=== PATIENT | female | born 1995 | race Caucasian/White ===

== ENCOUNTER 2024-03-12 22:44 | Emergency (ER) | payer SELFPAY ==
[~2024-03-12] VITALS: Ht 152.4 cm; Wt 56.7 kg
[2024-03-12 23:07] VITALS: PULSE 116; RESP 18; TEMP 97.6; O2SAT 100
== END 2024-03-12 23:20 | disposition home or self-care (01) ==
LOC: FSED 22:48
DX: L55.0 Sunburn of first degree (principal); E11.9 Type 2 diabetes mellitus without complications; E03.9 Hypothyroidism, unspecified
CPT/HCPCS: 99282

== ENCOUNTER 2024-07-24 17:29 | Observation (INO) | payer SELFPAY ==
[~2024-07-24] VITALS: Ht 152.4 cm; Wt 58.1 kg
[2024-07-24 17:32] VITALS: PULSE 84; RESP 18; TEMP 98
[2024-07-24] MEDS: LACTATED RINGER'S 1,000 ML IV ONE ×2 (18:15→19:19)
[2024-07-24] MEDS ORDERED: ONDANSETRON HCL INJ 2MG/ML 2ML 2 MG/ML VIAL IV PRN (18:45)
[2024-07-24] MEDS: INSULIN REGULAR, HUMAN 100 UNIT/1 ML SQ ONE (19:22)
[2024-07-24 20:24] VITALS: BP 114/71; PULSE 91; RESP 19; TEMP 98.2; O2SAT 100
[2024-07-24] MEDS ORDERED: DEXTROSE 50% SYRINGE 50 ML IV PRN (20:30)
[2024-07-24 21:00] VITALS: BP 124/78; PULSE 84; RESP 18; TEMP 98.3; O2SAT 100
[2024-07-24] MEDS ORDERED: INSULIN REGULAR, HUMAN 100 UNIT/1 ML SQ SCH (21:00)
[2024-07-24 21:30] VITALS: BP 124/78; PULSE 84; RESP 18; TEMP 98.3; O2SAT 100
[2024-07-24] MEDS: SODIUM CHLORIDE 0.9% 1000ML 1,000 ML IV SCH (22:08)
[2024-07-24] MEDS: INSULIN REGULAR, HUMAN 100 UNIT/1 ML SQ SCH (22:30)
[2024-07-24 23:06] LABS: ANION GAP 12.6 mmol/L (8-16); CALCIUM 8.9 mg/dL (8.4-10.2); CREATININE, SERUM 0.69 mg/dL (0.57-1.11); POTASSIUM 3.6 mmol/L (3.5-5.1)
[2024-07-24 23:20] LABS: MAGNESIUM 1.6 MG/DL (1.3-2.1); PHOSPHORUS 2.2 MG/DL (2.3-4.7)
[2024-07-25] VITALS (7 sets, daily range): BP systolic 108–126; BP diastolic 55–76; PULSE 70–81; RESP 16–20; TEMP 97.7–98.3; O2SAT 99–100
[2024-07-25] MEDS ORDERED: LANTUS 3ML100 UNITS/ SC (00:36)
[2024-07-25] MEDS ORDERED: LEVOTHYROXINE50 MCG PO (00:36)
[2024-07-25] MEDS ORDERED: HUMALOG100 UNIT/1 SC ×2 (00:36)
[2024-07-25] MEDS: INSULIN LISPRO 100 UNIT/1 ML 3ML VIAL SQ SCH ×3 (16:30→21:00)
[2024-07-25] MEDS ORDERED: DEXTROSE 50% SYRINGE 50 ML IV PRN (18:00)
[2024-07-25] MEDS: INSULIN GLARGINE 100 UNITS/ML VIAL SQ SCH (20:43)
[2024-07-25] MEDS ORDERED: INSULIN GLARGINE SC SCH (21:00)
[2024-07-26 04:00] VITALS: BP 119/66; PULSE 66; RESP 17; TEMP 97.4; O2SAT 100
[2024-07-26] MEDS: LEVOTHYROXINE SODIUM 50 MCG TAB PO SCH (06:09)
[2024-07-26] MEDS: LEVOTHYROXINE SODIUM 50 MCG TAB ONE (06:09)
[2024-07-26 08:00] VITALS: BP_SYST 122; BP_SYST 160; BP_DIAS 66; BP_DIAS 85; PULSE 64; PULSE 72; RESP 18; RESP 19; TEMP 97.8; TEMP 98.7; O2SAT 100
[2024-07-26 08:30] LABS: BASOPHILS # (AUTO) 0.1 (0.0-0.1); BASOPHILS % 0.8 % (0.0-1.0); EOSINOPHILS # (AUTO) 0.2 (0.0-0.4); EOSINOPHILS % 2.7 % (0.0-6.0); HEMATOCRIT 42.1 % (34.2-44.1); LYMPHOCYTES # (AUTO) 2.9 (1.0-3.2); LYMPHOCYTES % 37.9 % (18.0-39.1); MEAN CORPUSCULAR HEMOGLOBIN 29.5 pg (28-32); MEAN CORPUSCULAR HGB CONC 33.3 g/dL (31-35); MEAN CORPUSCULAR VOLUME 88.8 fL (81-99); MONOCYTES # (AUTO) 0.5 (0.2-0.8); MONOCYTES % 6.7 % (4.4-11.3); NEUTROPHILS % 51.6 % (38.7-80.0); PLATELET COUNT 273 x10e3/uL (140-360); RED BLOOD COUNT 4.74 x10e6/uL (3.6-5.1); RED CELL DISTRIBUTION WIDTH 12.3 % (11.7-14.4); WHITE BLOOD COUNT 7.65 x10e3/uL (4.8-10.8)
[2024-07-26 08:51] LABS: ALBUMIN 3.6 g/dL (3.5-5.0); ALBUMIN/GLOBULIN RATIO 1.2 (0.8-2.0); BILIRUBIN,TOTAL 0.5 mg/dL (0.2-1.2); CREATININE, SERUM 0.73 mg/dL (0.57-1.11); TOTAL PROTEIN 6.7 g/dL (6.5-8.1)
[2024-07-26 09:14] LABS: MAGNESIUM 1.7 MG/DL (1.3-2.1); PHOSPHORUS 2.9 MG/DL (2.3-4.7)
[2024-07-26 09:52] LABS: FREE T4 (FREE THYROXINE) 1.29 ng/dL (0.8-1.8); THYROID STIMULATING HORMONE 2.007 uIU/mL (0.350-4.940)
[2024-07-26 10:08] VITALS: BP 122/85; PULSE 72; RESP 19; TEMP 97.8; O2SAT 100
[2024-07-26 12:00] VITALS: BP 120/74; PULSE 89; RESP 18; TEMP 97.8; O2SAT 100
[2024-07-26] MEDS ORDERED: MAGNESIUM OXIDE 400 MG TAB PO ONE (12:45)
[2024-07-26] MEDS ORDERED: ONDANSETRON ODT4 MG PO (12:49)
[2024-07-26] MEDS ORDERED: LANTUS 3ML100 UNITS/ SC (12:49)
[2024-07-26] MEDS ORDERED: INSULIN LI100 UNIT/1 SC ×2 (12:51)
== END 2024-07-26 13:35 | disposition home or self-care (01) ==
LOC: FSED 17:32 → ERHOLD 18:46 → MED/SURG2 21:13
PROVIDERS: ADMIT Internal Medicine; ATTEND Internal Medicine
DX: E10.65 Type 1 diabetes mellitus with hyperglycemia (principal); E86.0 Dehydration; E10.10 Type 1 diabetes mellitus with ketoacidosis without coma; E03.9 Hypothyroidism, unspecified; Z79.4 Long term (current) use of insulin; R82.4 Acetonuria; Z79.899 Other long term (current) drug therapy
CPT/HCPCS: 36415 ×3; 80048; 80053 ×2; 80307; 81025; 82948 ×3; 83036; 83735 ×2; 84100 ×2; 84439; 84443; 85025 ×2; 99284; G0378 ×3; J7030 ×3; J7121

== ENCOUNTER 2024-09-20 19:03 | Emergency (ER) | payer SELFPAY ==
[~2024-09-20] VITALS: Ht 304.8 cm; Wt 58.1 kg
[~2024-09-20 19:03] MED LIST: HUMALOG100 UNIT/1 SC; INSULIN LI100 UNIT/1 SC; LANTUS 3ML100 UNITS/ SC; LEVOTHYROXINE50 MCG PO; ONDANSETRON ODT4 MG PO
[2024-09-20 19:43] LABS: BASOPHILS % 0.2 % (0.0-1.0); EOSINOPHILS % 0.3 % (0.0-6.0); HEMATOCRIT 46.7 % (34.2-44.1); HEMOGLOBIN 14.7 g/dL (12.0-16.0); LYMPHOCYTES # (AUTO) 0.9 (1.0-3.2); LYMPHOCYTES % 6.9 % (18.0-39.1); MEAN CORPUSCULAR HEMOGLOBIN 29.8 pg (28-32); MEAN CORPUSCULAR HGB CONC 31.5 g/dL (31-35); MEAN CORPUSCULAR VOLUME 94.5 fL (81-99); MONOCYTES # (AUTO) 0.5 (0.2-0.8); MONOCYTES % 4.4 % (4.4-11.3); NEUTROPHILS # (AUTO) 10.9 (2.1-6.9); NEUTROPHILS % 87.9 % (38.7-80.0); PLATELET COUNT 259 x10e3/uL (140-360); RED BLOOD COUNT 4.94 x10e6/uL (3.6-5.1); RED CELL DISTRIBUTION WIDTH 12.4 % (11.7-14.4); WHITE BLOOD COUNT 12.41 x10e3/uL (4.8-10.8)
[2024-09-20] MEDS: SODIUM CHLORIDE 0.9% 1000ML 1,000 ML IV ONE (20:00)
[2024-09-20] MEDS: ONDANSETRON HCL INJ 2MG/ML 2ML 2 MG/ML VIAL IV STA (20:01)
[2024-09-20 20:06] LABS: ALBUMIN 3.9 g/dL (3.5-5.0); ALBUMIN/GLOBULIN RATIO 1.1 (0.8-2.0); ANION GAP 16.5 mmol/L (8-16); BILIRUBIN,TOTAL 0.7 mg/dL (0.2-1.2); CALCIUM 8.5 mg/dL (8.4-10.2); CREATININE, SERUM 0.77 mg/dL (0.57-1.11); POTASSIUM 3.5 mmol/L (3.5-5.1); TOTAL PROTEIN 7.3 g/dL (6.5-8.1)
[2024-09-20 20:20] LABS: ABG HCO3 18 mmol/L (22-26); ABG PCO2 31 mmHg (35-45); ABG PH 7.38 (7.35-7.45); ABG PO2 111 mmHg (80-105); ABG TCO2 19
[2024-09-20 21:25] LABS: CLARITY,URINE CLEAR (CLEAR); COLOR,URINE YELLOW (YELLOW); LEUKOCYTE ESTERASE ,URINE NEGATIVE (NEGATIVE); PH,URINE 6 (5 - 7); PREGNANCY TEST, URINE POSITIVE (NEGATIVE)
[2024-09-20 21:26] LABS: BILIRUBIN,URINE NEGATIVE (NEGATIVE); GLUCOSE, URINE 500 (NEGATIVE); KETONES,URINE 2+ (NEGATIVE); NITRITE,URINE NEGATIVE (NEGATIVE); PROTEIN,URINE DIPSTICK NEGATIVE (NEGATIVE); URINE UROBILINOGEN 0.2 mg/dL (0.2 - 1)
[2024-09-20 21:32] LABS: BACTERIA,URINE FEW /HPF; EPITHELIAL CELLS,URINE MODERATE /LPF; MUCUS,URINE MODERATE (RARE); RBC,URINE 0-5 /HPF (0-5); WBC,URINE (MAN) 0-5 /HPF (0-5)
[2024-09-20] MEDS ORDERED: ONDANSETRON ODT4 MG SL (21:59)
[2024-09-20 22:27] VITALS: PULSE 105; RESP 16; TEMP 98.4; O2SAT 100
== END 2024-09-20 22:25 | disposition home or self-care (01) ==
LOC: ER 19:05
DX: R11.2 Nausea with vomiting, unspecified (principal); R19.7 Diarrhea, unspecified; E11.65 Type 2 diabetes mellitus with hyperglycemia; E03.9 Hypothyroidism, unspecified; Z33.1 Pregnant state, incidental
CPT/HCPCS: 36415; 36600; 80053; 81001; 81025; 82805; 85025; 99283; J2405; J7030